=== PATIENT | male | born 1955 | race Caucasian/White ===

== ENCOUNTER 2016-07-03 09:41 | Emergency (ER) | payer OTHER ==
[2016-07-03 10:36] LABS: SPECIFIC GRAVITY 1.015 (1.001-1.030); URINE BILIRUBIN NEGATIVE (NEGATIVE); URINE BLOOD 1+ (NEGATIVE); URINE GLUCOSE (UA) NEGATIVE (NEGATIVE); URINE LEUKOCYTE ESTERASE NEGATIVE (NEGATIVE); URINE NITRITE NEGATIVE (NEGATIVE); URINE PROTEIN NEGATIVE (NEGATIVE); URINE UROBILINOGEN NORMAL (0-1 mg/dl)
[2016-07-03 10:38] LABS: URINE APPEARANCE CLEAR; URINE COLOR YELLOW
[2016-07-03 11:05] LABS: URINE BACTERIA NONE SEEN; URINE EPITHELIAL CELLS 0-2 /hpf; URINE WBC 0-2 /hpf
== END 2016-07-03 10:56 | disposition home or self-care (01) ==
LOC: ED 09:41
DX: R10.9 Unspecified abdominal pain (principal)

== ENCOUNTER 2016-07-14 07:35 | Emergency (ER) | payer OTHER ==
[2016-07-14] MEDS ORDERED: IOPAMIDOL 370 (76%) 100 ML VIAL IV ONE (07:36)
[2016-07-14] MEDS ORDERED: KETOROLAC TROMETHAMINE 15 MG/ML VIAL ONE (08:12)
[2016-07-14 08:25] LABS: BASO % 0.7 % (0.2-1.0); EOS # 0.2 (0.0-0.5); HEMATOCRIT 50.2 % (32.0-52.0); HEMOGLOBIN 16.5 gm/l (14.0-18.0); IMM NEUT% 0.2 % (0-1); LYMPH # 1.6 (1.0-4.8); LYMPH % 29.5 % (15-45); MEAN CELL VOLUME 88.1 fl (80.0-94.0); MEAN CORPUSCULAR HEMOGLOBIN 28.9 pg (27.0-31.0); MEAN CORPUSCULAR HGB CONC 32.9 g/dl (33.0-37.0); MEAN PLATELET VOLUME 10.1 fl (7.4-10.4); MONO # 0.6 (0.0-0.8); MONO % 10.4 % (4-12); NEUT % 56.2 % (43-75); PLATELET COUNT 262 K/mm3 (130-400); RED CELL DISTRIBUTION WIDTH 12.8 % (11.5-14.5)
[2016-07-14 08:40] LABS: TROPONIN I 0.01 ng/ml (0.0-0.06)
[2016-07-14 08:41] LABS: ALB/GLOB RATIO 1.6 (>1.0); ALBUMIN 4.5 gm/dL (3.5-5.7); CALCIUM 9.9 mg/dL (8.6-10.3)
[2016-07-14 08:43] LABS: CKMB ISOENZYME 4.7 ng/ml (0.6-6.3)
[2016-07-14 09:08] LABS: PH,URINE 6.5 (5.0-8.0); SPECIFIC GRAVITY 1.015 (1.001-1.030); URINE APPEARANCE CLEAR; URINE BILIRUBIN NEGATIVE (NEGATIVE); URINE BLOOD 4+ (NEGATIVE); URINE COLOR YELLOW; URINE GLUCOSE (UA) NEGATIVE (NEGATIVE); URINE LEUKOCYTE ESTERASE NEGATIVE (NEGATIVE); URINE NITRITE NEGATIVE (NEGATIVE); URINE PROTEIN NEGATIVE (NEGATIVE); URINE UROBILINOGEN NORMAL (0-1 mg/dl)
[2016-07-14 09:19] LABS: URINE BACTERIA 0; URINE EPITHELIAL CELLS FEW /hpf; URINE RBC 30-50 /hpf
--- NOTE | 2016-07-14 10:23 | CT ---
Exam Type: ABD/PELVIS W/ CON Date and Time: 07/14/2016 9:11 AM Clinical information: Left flank pain Comparison: None Technique: Contiguous axial 4 mm images were obtained from the lung bases through the pelvis after the uneventful IV administration of 100 cc of Isovue-[id number]. Sagittal and coronal reformations with high resolution lung algorithm images were also obtained at this time. CT DI: 14.6 DLP 754.4 FINDINGS: Lung base :No abnormality is identified at the lung bases. Visualized heart:There is no pericardial effusion. LIVER: Multiple probable cysts are identified within the liver. The largest is identified within the anterior segment right lobe on image 17 measuring approximately 1.8 x 1.5 cm. BILE DUCTS: normal caliber. GALLBLADDER: No calcified gallstones. Normal caliber wall. PANCREAS: within normal limits. SPLEEN: within normal limits. ADRENALS: within normal limits. KIDNEYS: Moderate left-sided hydronephrosis is present with an obstructing 3 to 4 mm calculus near the left ureterovesicular junction. Left lower pole exophytic cyst is also present measuring approximately 4.7 x 4.3 cm on axial image 48. No other evidence of obstructive or nonobstructive uropathy. Stomach and small BOWEL: Normal caliber. Large bowel: Air and stool are noted within the large bowel. Appendix is not visualized though secondary signs of appendicitis are not seen. There is minimal diverticulosis without diverticulitis or abscess formation. LYMPH NODES: No enlarged mesenteric lymph nodes. PERITONEUM: no ascites or free air, no fluid collection. VESSELS: Mild to moderate atherosclerotic disease. RETROPERITONEUM: within normal limits. ABDOMINAL WALL: within normal limits. Bladder: Normal BONES: Multilevel degenerative changes of the spine are identified. No lytic or sclerotic lesions. Spine maintains anatomic alignment. IMPRESSION: 3 to 4 mm obstructing left renal calculus with moderate hydronephrosis. No other evidence of obstructive or nonobstructive uropathy. Incidental note is made of a probable cyst within the liver. Other incidental findings as above. Report was uploaded to the electronic medical record at approximately 1019 hours on 07/14/2016.
[2016-07-14] MEDS ORDERED: TAMSULOSIN HCL 0.4 MG CAPSULE.DR ONE (11:31)
== END 2016-07-14 11:42 | disposition home or self-care (01) ==
LOC: ED 07:35
DX: N20.1 Calculus of ureter (principal); I25.10 Atherosclerotic heart disease of native coronary artery without angina pectoris; I25.2 Old myocardial infarction; Z95.1 Presence of aortocoronary bypass graft
CPT/HCPCS: 83690; 82150; 85025; 82550; 82553; 87086; 80053; 84484; 81001; 74177; 99284 ×2; 96374; 51798; J1885; Q9967

== ENCOUNTER 2016-08-01 06:04 | Day surgery (SDC) | payer OTHER ==
[~2016-08-01 06:04] MED LIST: CEFAZOLIN SODIUM 2 GRAM PREMIX 100 ML IV PRN; GENTAMICIN SULFATE 320 MG in SODIUM CHLORIDE 0.9% 100 ML IV PRN
[2016-08-01] MEDS ORDERED: LACTATED RINGERS 1,000 ML ONE (06:07)
[2016-08-01] MEDS ORDERED: IV START KIT ONE (06:07)
[2016-08-01] MEDS ORDERED: CEFAZOLIN SODIUM 2 GRAM PREMIX 100 ML IV ONE (06:08)
[2016-08-01] MEDS ORDERED: PHENYLEPHRINE 10 MG/1 ML (1%) VIAL ONE (06:34)
[2016-08-01] MEDS ORDERED: SUCCINYLCHOLINE CHL 20 MG/ML DOSE ONE (06:34)
[2016-08-01] MEDS ORDERED: PROPOFOL 40 ML IV ONE (06:34)
[2016-08-01] MEDS ORDERED: SODIUM CHLORIDE 0.9% 100 ML IV ONE (06:34)
[2016-08-01] MEDS ORDERED: LIDOCAINE 2% (MULTI DOSE) 10 ML VIAL ONE (06:34)
[2016-08-01] MEDS ORDERED: FENTANYL 100 MCG/2 ML VIAL ONE (06:42)
[2016-08-01] MEDS ORDERED: MIDAZOLAM HCL 1 MG/ML 2ML VIAL ONE (07:03)
[2016-08-01] MEDS ORDERED: IOPAMIDOL 300 (61%) 30 ML SDV ONE (07:04)
[2016-08-01] MEDS ORDERED: SODIUM CHLORIDE 0.9% 50 ML ONE (07:04)
[2016-08-01] MEDS ORDERED: OPIUM/BELLADONNA ALKALOIDS 1 EACH SUP PR ONE (07:08)
[2016-08-01] MEDS ORDERED: ROCURONIUM BROMIDE 10 MG/ML DOSE IV ONE ×2 (07:27→07:33)
[2016-08-01] MEDS ORDERED: DEXAMETHASONE SOD PHOS 4 MG/1 ML VIAL ONE (07:30)
[2016-08-01] MEDS ORDERED: ONDANSETRON 4 MG/2ML 2 ML VIAL ONE (07:30)
[2016-08-01] MEDS ORDERED: EPHEDRINE SULFATE UD SYR 25 MG 25 MG/5 ML SYRINGE IV ONE (07:38)
[2016-08-01] MEDS ORDERED: HYDRALAZINE HCL 20 MG/1 ML VIAL IV PRN (07:50)
[2016-08-01] MEDS ORDERED: NALOXONE HCL 0.4 MG/ML VIAL IV PRN (07:50)
[2016-08-01] MEDS ORDERED: LABETALOL HCL 5 MG/ML 20ML VIAL IV PRN (07:50)
[2016-08-01] MEDS ORDERED: FENTANYL 100 MCG/2 ML VIAL IV PRN (07:50)
[2016-08-01] MEDS ORDERED: ATROPINE SULFATE 0.4 MG/1 ML VIAL IV PRN (07:50)
[2016-08-01] MEDS ORDERED: HYDROMORPHONE HCL 1 MG/ML SYRINGE IV PRN (07:50)
[2016-08-01] MEDS ORDERED: PROMETHAZINE HCL 25 MG/ML VIAL IM PRN (07:50)
[2016-08-01] MEDS ORDERED: ONDANSETRON 4 MG/2ML 2 ML VIAL IV PRN (07:50)
[2016-08-01] MEDS ORDERED: MEPERIDINE 25 MG/ML SYRINGE IV PRN (07:50)
[2016-08-01] MEDS ORDERED: NEOSTIGMINE METHYLSULFATE 1 MG/ML DOSE ONE (07:52)
[2016-08-01] MEDS ORDERED: GLYCOPYRROLATE 0.2 MG/ML 1ML VIAL ONE (07:52)
[2016-08-01] MEDS ORDERED: LACTATED RINGERS 1,000 ML IV SCH (08:00)
[2016-08-01] MEDS ORDERED: ESMOLOL HCL 10 MG/ML 10ML VIAL IV ONE (08:05)
[2016-08-01] MEDS ORDERED: MORPHINE SULFATE 2 MG/ML SYRINGE IV PRN (09:02)
[2016-08-01] MEDS ORDERED: HYDROCODONE/ACETAMINOPHEN 5/325MG TABLET PO PRN (09:02)
[2016-08-01] MEDS: PHENAZOPYRIDINE HCL 200 MG TABLET PO SCH (09:21)
[2016-08-01] MEDS ORDERED: MORPHINE SULFATE 4 MG/ML SYRINGE IV PRN (09:37)
--- NOTE | 2016-08-01 10:41 | RAD ---
RETROGRADE UROGRAM HISTORY: Retrograde urogram. COMPARISONS: CT abdomen pelvis with contrast 07/14/2016 FINDINGS: 6 overhead fluoroscopic images are provided for review. These images demonstrate retrograde cannulization and opacification of the left ureter. No definite filling defect is present. Fluoroscopy time: 30.9 seconds IMPRESSION: Retrograde urogram as above. Please see urologist note regarding the procedure for further details.
--- NOTE | 2016-08-01 12:07 | OP ---
YUNIER HERNANDEZ SHADI [id number] DATE OF OPERATION: August 01, 2016 SURGEON: Moy Winkler M.D. SQL DATA ARCHITECT: None. ANESTHEISA: General. PREOPERATIVE DIAGNOSIS: Left ureteral calculus. POSTOPERATIVE DIAGNOSIS: Left ureteral calculus. PROCEDURE: 1. CYSTOSCOPY. 2. LEFT RETROGRADE UROGRAPHY. 3. LEFT URETEROSCOPY. 4. HOLMIUM LASER LITHOTRIPSY SPECIMENS: Fragments of left ureteral calculus. INDICATIONS: The patient is a 60-year-old man with a greater than one month history of trying to pass a left ureteral calculus. He has associated intermittent renal colic and at least a mild degree of hydronephrosis. He also has significant irritative bladder symptoms. He presents now for surgical intervention. FINDINGS: Urethra appears normal. Membranous urethra is intact. Prostatic fossa is approximately 3.5 cm to 4 cm in length with some enlarging prostate and bladder neck elevation. Bladder wall is mildly trabeculated. Ureteral orifices normally disposed. We found the stone sitting in the base of his bladder, very likely having been expelled with induction of anesthesia. We did check ureteroscopically after the retrograde showed hydroureter above the level of the intramural ureter. We could see the area of the intramural ureters where the stone had been lodged, but there was no active ulceration at this time, and we elected not to leave a stent. The stone fragmented easily enough with the laser for us to be able to remove the fragments. PROCEDURE: The patient was identified and brought to the operating room where general anesthesia was induced supine and then he was placed in a modified lithotomy position with the right leg high and the left leg low. Cystoscopy was performed with a 21 Swazi scope using saline as an irrigant. Findings were reported above. We used a cone tip catheter against the left ureteral orifice and injected contrast, finding no filling defect as expected, but hydroureter behind the intramural ureter. Therefore, we switched to a semi-rigid ureteroscope continuing with saline as an irrigant. We were able to easily access the left distal ureter and confirm that there were no remaining fragments or new stones and identified the points where the stone had been impacted. Above that, the ureter was dilated, but there were no new stones identified. Therefore, we removed the ureteroscope and passed a 500 micron laser fiber using Holmium laser at 10 hertz and an energy of 1 joule, we fragmented the calculus into fragments that we then removed with an open ended basket. Once all the fragments had been removed, we removed the ureteroscope and passed a 20 Swazi Moody catheter to gravity drainage with 10 mL of water in its balloon to observe for hematuria. Estimated blood loss less than 10 mL. No early complications. Patient tolerated the procedure and was taken in stable condition to the post anesthesia room. Cc: Moy Winkler M.D. Brian Bourgeois N.P.
[2016-08-04 17:37] LABS: CALCULUS NUMBER 1 (()); CALCULUS TOTAL WEIGHT 20 mg (())
== END 2016-08-01 18:43 | disposition home or self-care (01) ==
LOC: SDC 06:04
PROVIDERS: ATTEND Urology
PROC: 0TF78ZZ Fragmentation in Left Ureter, Via Natural or Artificial Opening Endoscopic (ICD-10-PCS; principal; 2016-08-01)
DX: N20.1 Calculus of ureter (principal); I10 Essential (primary) hypertension; I25.2 Old myocardial infarction; Z95.1 Presence of aortocoronary bypass graft
CPT/HCPCS: 82365; 74420; 52353; J3010; J1580; J1100; J2370; A9270 ×2; J2250; J2405; J7120; J7050 ×2; Q9967; J2001; J0690